=== PATIENT | female | born 1935 | race Caucasian/White ===

== ENCOUNTER → 2016-09-16 | Outpatient (CLI) | payer MEDICARE ==
--- NOTE | 2016-09-18 10:03 | RAD ---
APPROVED REPORT Test Type: Exercise Stress Nurse/Tech: Amber Singh R.N. Test Indications: Lt chest pain, abn. EKG Cardiac History: Hypertension, former smoker Medications: See Electronic Medical Record Medical History: See Electronic Medical Record Resting ECG: NSR Resting Heart Rate: 73 bpm Resting Blood Pressure: 159/83mmHg Pretest Chest Pain: No chest pain Nurse/Tech Notes S1S2, lungs sound clear Consent: The procedure was explained to the patient in lay terms. Informed consent was witnessed. Ad eout was entered into [employer]. History and Stress Test performed by Amber Singh R.N. Stress Symptoms Dyspnea, Knees hurting Max heartrate on final report states 182. this was artifact, her max. was 1 52 POST EXERCISE Reason for Termination: Reached target heart rate Target HR: 118 Max HR: 152 bpm Exercise duration: 5 min, 32 sec min:sec, 2 Stage Max Blood Pressure: 177/83mmHg Blood Pressure response to exercise: Normal blood pressure response during stress. Chest Pain: No. Arrhythmia: Yes. PVC's, couplets and PAC's ST Change: Yes. INTERPRETATION Stress EKG Conclusion: No evidence of stress induced EKG changest but non-specific ST/T changes and P VC's in recovery. Imaging Protocol IMAGE PROTOCOL: Rest Tc-99m/stress Tc-99m 1 day Rest: Stress: Viability: Radiopharm.Tc99m [id number] Sestamibi Dose11.6mCi 33mCi Duration 15min. 10min. Img Date 09/16/2016 09/16/2016 Inj-Img [id number]. 75min. Post-Injection Exercise: 1 minute Rest Admin Site:IV - Right AntecubitalAdministrator:HAYLEY Hernandez Stress Admin Site: IV - Right AntecubitalAdministrator: Karlo Jones, (R)(N) STRESS DATA End Diast. Vol.59.0mlAv. Heart Rate76.0bpm End Syst. Vol.8.0mlCO Index BSA0.0L/min Myocardial Mass99.0gEject. Bjpazbop87.0% Stress Rates Pk. Fill Rate3.03EDV/secLVtime Pk. Fill 104.42msec Pk. Empty Rate4.51ESV/secLVtime Pk. Zehbz110.89msec 1/3 Pk. Fill1.88EDV/sec Stress Scores Regional WT0.00Summed WT0.00 Regional WM0.00Summed WM0.00 The rest and stress images show normal perfusion, normal contraction and thickening. LV Perf. Quant 17 Seg. SSS0.00 17 Seg. SRS0.00 17 Seg. SDS0.00 Stress Defect Extent (% LAD)0.00Rest Defect Extent (% LAD)0.00Rev. Defect Extent (% LAD)0.00 Stress Defect Extent (% LCX) 0.00Rest Defect Extent (% LCX)0.00Rev. Defect Extent (% LCX)0.00 Stress Defect Extent (% RCA)0.00Rest Defect Extent (% RCA)0.00Rev. Defect Extent (% RCA)0.00 Stress Defect Extent (% DANITA)0.00Rest Defect Extent (% DANITA)0.00Rev. Defect Extent (% DANITA)0.00 Other Information Quality:Good Risk Assessment: Low Risk Conclusion 1. No evidence of stress induced ischemic changes but non-specific findings with rare PVC's in recove ry. Average exercise capacity with 7.0 Mets 2. Normal perfusion at stress/rest 3. Normal EF at > 70% 4. Low risk study
== END | disposition home or self-care (01) ==
LOC: NM 08:05
PROVIDERS: ATTEND Internal Medicine Cardiovascular Disease
DX: R07.9 Chest pain, unspecified (principal)
CPT/HCPCS: 78452; 93017; 96374; 96375; 96376; A9500

== ENCOUNTER → 2017-05-20 | Outpatient (CLI) | payer MEDICARE | END | disposition home or self-care (01) | LOC: PMGWOUND 15:34 | PROVIDERS: ATTEND Emergency Medicine Undersea and Hyperbaric Medicine | DX: T25.222A Burn of second degree of left foot, initial encounter (principal); S91.302D Unspecified open wound, left foot, subsequent encounter; T31.0 Burns involving less than 10% of body surface; X08.8XXA Exposure to other specified smoke, fire and flames, initial encounter; Y93.89 Activity, other specified; Y92.89 Other specified places as the place of occurrence of the external cause; Y99.8 Other external cause status; Z87.891 Personal history of nicotine dependence | CPT/HCPCS: 97597 ==

== ENCOUNTER → 2017-05-26 | Outpatient (CLI) | payer MEDICARE | END | disposition home or self-care (01) | LOC: PMGWOUND 09:30 | PROVIDERS: ATTEND Preventive Medicine Undersea and Hyperbaric Medicine | DX: T25.222D Burn of second degree of left foot, subsequent encounter (principal); S91.302D Unspecified open wound, left foot, subsequent encounter; X08.8XXD Exposure to other specified smoke, fire and flames, subsequent encounter; T31.0 Burns involving less than 10% of body surface; Z87.891 Personal history of nicotine dependence | CPT/HCPCS: 97597 ==

== ENCOUNTER → 2017-06-02 | Outpatient (CLI) | payer MEDICARE | END | disposition home or self-care (01) | LOC: PMGWOUND 10:51 | PROVIDERS: ATTEND Preventive Medicine Undersea and Hyperbaric Medicine | DX: T25.222D Burn of second degree of left foot, subsequent encounter (principal); S91.302D Unspecified open wound, left foot, subsequent encounter; T31.0 Burns involving less than 10% of body surface; Z87.891 Personal history of nicotine dependence; X08.8XXD Exposure to other specified smoke, fire and flames, subsequent encounter | CPT/HCPCS: 97597 ==

== ENCOUNTER → 2017-06-09 | Outpatient (CLI) | payer MEDICARE | END | disposition home or self-care (01) | LOC: PMGWOUND 11:12 | PROVIDERS: ATTEND Preventive Medicine Undersea and Hyperbaric Medicine | DX: T25.222D Burn of second degree of left foot, subsequent encounter (principal); T31.0 Burns involving less than 10% of body surface; Z87.891 Personal history of nicotine dependence; X08.8XXD Exposure to other specified smoke, fire and flames, subsequent encounter | CPT/HCPCS: 99213 ==

== ENCOUNTER → 2017-12-16 | Outpatient (CLI) | payer MEDICARE | END | disposition home or self-care (01) | LOC: KCIC MRI 10:38 | DX: M51.16 Intervertebral disc disorders with radiculopathy, lumbar region (principal); M48.061 Spinal stenosis, lumbar region without neurogenic claudication | CPT/HCPCS: 72148 ==